=== PATIENT | female | born 1970 | race Two or more races ===

== ENCOUNTER → 2021-03-13 | Outpatient (CLI) | payer OTHER ==
[2015-06-15 12:35] VITALS: BP 111/67
[~2021-03-13] MED LIST: FERR325T14 PO; MULT-208 PO; NORG1TAB PO; NORG1TAB70 PO; OXYC1TAB15 PO
== END ==
LOC: LAB 11:54
PROVIDERS: ATTEND Obstetrics & Gynecology
DX: Z01.812 Encounter for preprocedural laboratory examination (principal); Z20.822 Contact with and (suspected) exposure to COVID-19
CPT/HCPCS: U0003

== ENCOUNTER 2021-03-15 06:49 | Day surgery (SDC) | payer OTHER ==
[~2021-03-15] VITALS: Ht 160 cm; Wt 73.0 kg
[~2021-03-15 06:49] MED LIST changes: +HYDROmorphone 2 MG/ML VIAL IVP PRN; +IV RINGERS,LACTATED 1000ML 1,000 ML IV SCH; +MORPHINE SULFATE 2 MG/ML INJ. IVP PRN; -OXYC1TAB15 PO; +PROCHLORPERAZINE 10 MG/2 ML VIAL. IVP PRN; +ceFAZolin SODIUM IV Push 1 GM VIAL. IVP PRN; +fentaNYL PF VIAL 100 MCG/2 ML VIAL IVP PRN
[2021-03-15 07:16] VITALS: BP 152/80
[2021-03-15] MEDS ORDERED: FERRIC SUBSULFATE 8 ML SOL.W.APPL TP ONE (07:24)
[2021-03-15] MEDS ORDERED: LIDOCAINE 1%/EPI 1:100,000 20 ML VIAL. INJ ONE (07:45)
[2021-03-15] MEDS ORDERED: LIDOCAINE 2% PF 5 ML VIAL. ONE (08:25)
[2021-03-15] MEDS ORDERED: MIDAZOLAM HCL/PF 2 MG/2 ML VIAL. ONE (08:25)
[2021-03-15] MEDS ORDERED: PROPOFOL 10 MG/ML (20ML) VIAL. IV ONE (08:25)
[2021-03-15] MEDS ORDERED: DEXAMETHASONE SOD PHOS 4 MG/ML VIAL ONE (08:25)
[2021-03-15] MEDS ORDERED: ONDANSETRON PF 4 MG/2 ML VIAL. ONE (08:25)
[2021-03-15] MEDS ORDERED: fentaNYL PF VIAL 100 MCG/2 ML VIAL ONE (08:25)
[2021-03-15] MEDS ORDERED: KETOROLAC 30 MG/ML VIAL. ONE (09:40)
--- NOTE | 2021-03-15 09:47 | PDOC ---
BRIEF OPERATIVE NOTE Date: Mar 15, 2021 Pre-Op Diagnosis SAYRA 1 Post-Op Diagnosis Same Procedure Performed Cervical Cone Biopsy Surgeon Dr. Ash Anesthesia Type: General Blood Loss 5 ml Specimens Obtained cervical cone biopsy of anterior and posterior lip of cervix Findings cervical dysplasia Complications none Operative Note see dictation ERICKSON ASH Jr, MD Mar 15, 2021 09:47
[2021-03-15] MEDS ORDERED: OXYC1TAB15 PO (09:48)
--- NOTE | 2021-03-15 09:50 | DISCH ---
DISCHARGE INSTRUCTIONS Condition on Discharge Condition on Discharge: Stable Activity After Discharge Activity Instructions for Disc: Resume previous activity Lifting Instructions after Dis: No heavy lifting Driving Instructions after Dis: Do not drive today Diet after Discharge Diet after Discharge: Regular Contacting the [facility] after DC Call your doctor for: If your condition worsens Follow-Up Follow up with: Dr. Ash in 1 week. ERICKSON ASH Jr, MD Mar 15, 2021 09:50
[2021-03-15] MEDS ORDERED: SEVOFLURANE 16 TO 30 MINUTES. IH ONE (09:57)
--- NOTE | 2021-03-15 09:58 | OP ---
DATE OF SURGERY: 03/15/2021 PREOPERATIVE DIAGNOSIS: Cervical intraepithelial neoplasia 1. POSTOPERATIVE DIAGNOSIS: Cervical intraepithelial neoplasia 1. PROCEDURE: Cervical cone biopsy. SURGEON: Dr. Ash. TYPE OF ANESTHESIA: GETA. ESTIMATED BLOOD LOSS: 5 mL. COMPLICATIONS: None. FINDINGS: Cervical dysplasia. SUMMARY: A 50-year-old with SAYRA 1 on colposcopic biopsy, requiring cervical cone biopsy. She was counseled on risks, benefits and expectations and voiced clear understanding to proceed. DESCRIPTION OF PROCEDURE: The patient was taken to surgery suite and placed in dorsal lithotomy position, was prepped with Betadine solution and draped in sterile fashion. After adequate anesthesia, weighted speculum and curved Netta placed vaginally. Anterior lip of the cervix grasped with single tooth tenaculum. Cervix was injected with 1% lidocaine with epinephrine in a circumferential manner, 2-0 Vicryl suture was placed at 3 o'clock and 9 o'clock position to help stabilize the cervix. The 45-degree angle scalpel was utilized to remove the anterior and posterior lip of the cervix and cold knife for cervical cone biopsy. The remaining cervix was cauterized with Bovie cautery. Monsel solution was also placed for better hemostasis. The single tooth tenaculum and weighted speculum were removed. The patient tolerated the procedure well and was taken to recovery room in stable condition. Sponge and needle counts were correct x 3. MICHELINE/JEWELS DR: Tyra TID: [id number]
[2021-03-15 10:45] VITALS: BP 117/71
--- NOTE | 2021-03-16 17:07 | PATHOLOGY ---
[facility] Accession Number: [id number] . 01 Material submitted: . cervix - CERVICAL CONE BIOPSY STITCH AT 12:00 . 02 Diagnosis: Uterine cervix, cervical cone biopsy: - Mild dysplasia (SAYRA I), focal. - Exocervical, endocervical, and deep margins negative for SAYRA I. - Chronic cervicitis. - Nabothian cysts, several. LBQ 03/16/2021 1506 Local . 02 Comment: There is no high grade SAYRA or evidence of malignancy. (JPM/db; 03/16/2021) . 02 Electronically signed: . Emerson Olmedo MD, Pathologist NPI- [id number] . 01 Gross description: . The specimen is received in formalin, labeled "Corina Byrd, cervical cone biopsy, stitch at 12:00". Received is an intact oriented LEEP specimen measuring 3.4 x 2.9 x 1.5 cm in greatest dimensions with a suture designating 12:00. The 1.2 cm cervical os is surrounded by pink-bhardwaj, smooth ectocervical mucosa. The endocervical margin is inked blue and the remaining margin is inked black. The specimen is radially sectioned and entirely submitted as follows: . A1-A3 12:00 to 3:00 margin A4-A6 3:00 to 6:00 margin A7-A8 6:00 to 9:00 margin A9-A10 9:00 to 12:00 margin . ([facility] [place]; 03/15/2021) NRI/NRI 03/15/2021 1712 Local . 02 Pathologist provided ICD-10: N87.0, N72, N88.8 . 02 CPT . 896381 Specimen Comment: A courtesy copy of this report has been sent to [phone] Specimen Comment: Report sent to Performed at: [address] [facility] [address], [place] [id number] MD Raymon Dorman MD Phone: [phone] Performed at: 02 [facility] [address] [place], [place] [id number] MD Emerson Olmedo MD Phone: [phone]
== END 2021-03-15 11:07 | disposition home or self-care (01) ==
LOC: SURG 06:49
PROVIDERS: ATTEND Obstetrics & Gynecology
DX: N87.0 Mild cervical dysplasia (principal); N72 Inflammatory disease of cervix uteri; N88.8 Other specified noninflammatory disorders of cervix uteri; Z79.899 Other long term (current) drug therapy; Z98.890 Other specified postprocedural states
CPT/HCPCS: 57520; 81025; A4930; J0690; J1100; J1885; J2250; J2405; J2704; J3010; J3490